=== PATIENT | male | born 1990 | race Caucasian/White ===

== ENCOUNTER → 2019-07-08 16:47 | Outpatient (REF) | payer BC, SELFPAY | LOC: ANHLAB 16:47 | PROVIDERS: PCP Nurse Practitioner; Visit Provider Nurse Practitioner | DX: L82.1 Other seborrheic keratosis (principal) | CPT/HCPCS: 88305 ==

== ENCOUNTER 2019-11-08 06:05 | Emergency (ER) | payer BC, SELFPAY ==
--- NOTE | ~2019-11-08 | CT_ITS ---
EXAMINATION: CT abdomen pelvis w con DATE: 11/08/2019 07:09 INDICATION: Vomiting with abdominal pain TECHNIQUE: Computed tomography (CT) of the abdomen and pelvis was performed with 100 mL Omnipaque-350 intravenous contrast. Automated exposure control and iterative reconstruction technique were employe d. The dose-length product was 795.19 mGy-cm. COMPARISON: 01/30/2005 FINDINGS: Lung bases are clear. Heart size is normal. No pericardial or pleural effusion. Small gallstone in th e dependent aspect of the normal-appearing gallbladder. Liver is normal. No intra or extrahepatic lindsay iary ductal dilation. Spleen, pancreas, bilateral adrenal glands and kidneys are normal. Couple dense appendicoliths within the normal-appearing appendix with no periappendiceal inflammatory stranding t o suggest acute appendicitis. Bowels are normal with no abnormal wall thickening or obstruction. Blad cindy is normal. No free intraperitoneal gas or fluid. No pathologically enlarged abdominal or pelvic l ymphadenopathy. Moderate disc height loss at L5-S1 and mild disc height loss at L4-L5. Several surgic al clips in the left thigh along the musculature at the proximal left vastus lateralis muscle. IMPRESSION: 1. Cholelithiasis without findings of biliary obstruction or acute cholecystitis. No acute intra-abdo modesta/pelvic process. Reviewed, dictated and finalized at location A. IMPRESSION: 1. Cholelithiasis without findings of biliary obstruction or acute cholecystiti s. No acute intra-abdominal/pelvic process.
[2019-11-08 06:06] VITALS: BP 127/71; PULSE 60; RESP 19; TEMP 36.1; O2SAT 100
[2019-11-08] MEDS: MORPHINE SULFATE 2 MG/ML INJ IV PUSH ×2 (06:26→07:25)
[2019-11-08 06:27] LABS: Basophils Percent Auto 0.2 % (0.2-1.2); Hematocrit 44.9 % (42.0-52.0); Hemoglobin 15.2 g/dL (14.0-18.0); Immature Granulocyte Absolute 0.13 K/mm3 (0.00-0.031); Immature Granulocyte Percent A 0.6 % (0-0.5); Lymphocytes Absolute Auto 1.03 K/mm3 (0.9-3.2); Lymphocytes Percent Auto 4.8 % (18.3-44.2); Mean Corpuscular HGB Conc 33.9 g/dl (32-36); Mean Corpuscular Volume 88.7 fl (80-100); Mean Platelet Volume 10.4 fl (7.4-10.4); Monocytes Absolute Auto 0.6 K/mm3 (0.1-0.6); Monocytes Percent Auto 2.7 % (2.6-8.5); Neutrophils Absolute Auto 19.6 K/mm3 (1.3-6.7); Neutrophils Percent Auto 91.7 % (45.5-73.1); Platelet Count Result 279 k/mm3 (150-375); Red Blood Count 5.06 M/mm3 (4.6-6.20); Red Cell Distribution Width 12.8 % (11.5-14.5); White Blood Count 21.4 K/mm3 (4.5-10.0)
[2019-11-08] MEDS: ONDANSETRON INJ 4 MG/2 ML VIAL IV PUSH (06:27)
[2019-11-08] MEDS: SODIUM CHLORIDE 0.9% IV 1,000 ML 999 ML IV CONT ×2 (06:27→07:26)
--- NOTE | 2019-11-08 06:28 | ED.NAVMDI ---
HPI - Nausea/Vomiting/Diarrhea General Chief complaint: Nausea/Vomiting/Diarrhea <Norm Grigsby MD - Last Filed: 11/08/19 06:32> Stated complaint: N/V <Norm Grigsby MD - Last Filed: 11/08/19 06:32> Time Seen by Provider: 11/08/19 06:21 <Norm Grigsby MD - Last Filed: 11/08/19 06:32> History of Present Illness HPI Narrative: Patient is a 28-year-old male who presents the ER with nausea and vomiting beginning yesterday at 4 PM. He is been unable to stop vomiting since then. It all started after eating a [employer] chicken teriyaki sub-sandwich. He reports since he has been vomiting he started having some blood streaks in it but no large quantities of blood. No diarrhea. He has some abdominal cramping from retching as well. No alleviating factors. <Norm Grigsby MD - Last Filed: 11/08/19 06:32> Related Data Allergies/Adverse reactions: Allergies Allergy/AdvReac Type Severity Reaction Status Date / Time No Known Allergies Allergy Verified 07/08/19 16:07 <Norm Grigsby MD - Last Filed: 11/08/19 06:32> Review of Systems Review of Systems: All systems reviewed & are unremarkable except as noted in HPI and below <Norm Grigsby MD - Last Filed: 11/08/19 06:32> Constitutional: Constitutional: Denies chills, Reports fatigue and Denies fever(s) <Norm Grigsby MD - Last Filed: 11/08/19 06:32> Gastrointestinal: Gastrointestinal: Reports abdominal pain, Denies hematochezia, Reports nausea and Reports vomiting (Blood-streaked emesis) <Norm Grigsby MD - Last Filed: 11/08/19 06:32> PMFSH Past Medical History Medical History: Medical History (Updated 11/08/19 @ 07:32 by Jeanne Chin MD) Depression Head injury due to trauma History of closed head injury History of melanoma <Norm Grigsby MD - Last Filed: 11/08/19 06:32> Surgical History Surgical History: Surgical History (Updated 11/08/19 @ 06:31 by Norm Grigsby MD) History of orthopedic surgery Compound fracture of the right tib-fib with surgical fixation and skin grafting. <Norm Grigsby MD - Last Filed: 11/08/19 06:32> Social History Social History: Social History Smoking status: Never smoker Alcohol intake: never Gender identity (if verbalized by the patient): Male <Norm Grigsby MD - Last Filed: 11/08/19 06:32> Exam Narrative: Exam Narrative: GENERAL: Uncomfortable-appearing, well-nourished, and in no acute distress. HEAD: Normocephalic, atraumatic. ENT: Mucous membranes moist. CHEST: Clear to auscultation. No respiratory distress. HEART: Regular rate and rhythm. Normal peripheral pulses. ABDOMEN: Soft, nontender, nondistended. EXTREMITIES: Normal range of motion. No edema. SKIN: Warm, dry, no rash. NEURO: Alert and oriented x3. <Norm Grigsby MD - Last Filed: 11/08/19 06:32> Course Vital Signs Vital signs: Vital Signs Temperature 36.1 C L 11/08/19 06:06 Pulse Rate 60 11/08/19 06:06 Respiratory Rate 19 11/08/19 06:06 Blood Pressure 127/71 11/08/19 06:06 Pulse Oximetry 100 11/08/19 06:06 Temperature 36.1 C L 11/08/19 06:06 Pulse Rate 55 L 11/08/19 08:24 Respiratory Rate 14 11/08/19 08:24 Blood Pressure 124/63 11/08/19 08:24 Pulse Oximetry 97 11/08/19 08:24 <Norm Grigsby MD - Last Filed: 11/08/19 06:32> Vital Signs Temperature 36.1 C L 11/08/19 06:06 Pulse Rate 60 11/08/19 06:06 Respiratory Rate 19 11/08/19 06:06 Blood Pressure 127/71 11/08/19 06:06 Pulse Oximetry 100 11/08/19 06:06 Temperature 36.1 C L 11/08/19 06:06 Pulse Rate 55 L 11/08/19 08:24 Respiratory Rate 14 11/08/19 08:24 Blood Pressure 124/63 11/08/19 08:24 Pulse Oximetry 97 11/08/19 08:24 <Jeanne Chin MD - Last Filed: 11/08/19 08:56> MDM - Nausea/Vomiting/Diarrhea Differential Diagnosis Differential di
[2019-11-08 06:48] LABS: Albumin Level 5.1 g/dL (3.5-5.1); Alkaline Phosphatase 88 U/L (38-126); Aspartate Amino Transferase 66 U/L (17-59); Bilirubin,Total 0.7 mg/dL (0.2-1.3); Blood Urea Nitrogen 12 mg/dL (9-20); Calcium 9.6 mg/dL (8.4-10.2); Carbon Dioxide 26 mmol/L (22-30); Chloride 101 mmol/L (98-107); Estimated CRCL calculation 168 ml/min; Estimated Glomerular Filt Rate > 60; Glucose 139 mg/dL (75-110); Lipase 23 U/L (23-300); Potassium 3.8 mmol/L (3.4-5.0); Sodium 140 mmol/L (137-145)
[2019-11-08 06:50] LABS: Alanine Aminotransferase 73 U/L (4-50)
[2019-11-08 07:05] LABS: Add Urine Microscopic? YES; Appearance Urine Clear (Clear); Bilirubin Urine Negative (Negative); Blood Urine Negative (Negative); Color Urine Yellow (Yellow); Glucose Urine UA 1+ mg/dL (Negative); Ketones Urine Trace mg/dL (Negative); Leukocyte Esterase Ur Negative LEU/UL (Negative); Mucus Urine Moderate /lpf; Nitrate Urine Negative (Negative); Protein Urine 3+ mg/dL (Negative); RBC Urine 0-2 /hpf (0-2); Squamous Epithelial Cell Urine Rare /hpf (Few); Urobilinogen Urine Negative mg/dL (<2.0); WBC Urine 0-3 /hpf
[2019-11-08 07:09] LABS: Specific Grav Ur 1.032 (1.001-1.035)
[2019-11-08] MEDS: METOCLOPRAMIDE HCL INJ 10 MG/2 ML VIAL IV PUSH (07:25)
[2019-11-08 07:27] VITALS: BP 102/50; PULSE 51; RESP 14; O2SAT 97
[2019-11-08 08:24] VITALS: BP 124/63; PULSE 55; RESP 14; O2SAT 97
== END 2019-11-08 08:39 | disposition home or self-care (01) ==
PROVIDERS: Emergency Medicine; Emergency Provider Emergency Medicine; PCP Internal Medicine
DX: A05.9 Bacterial foodborne intoxication, unspecified (principal); E86.0 Dehydration; K80.20 Calculus of gallbladder without cholecystitis without obstruction; Z85.820 Personal history of malignant melanoma of skin
CPT/HCPCS: 36415; 74177; 80053; 81001; 83690; 85025; 96361; 96374; 96375; 96376; 99284; J2270; J2405; J2765; J7030; Q9967

== ENCOUNTER 2020-04-16 16:36 | Emergency (ER) | payer BC, SELFPAY ==
[2020-04-16 16:44] VITALS: BP 136/78; PULSE 67; RESP 12; TEMP 36.6; O2SAT 97
--- NOTE | 2020-04-16 16:55 | ED.URI ---
HPI - URI/Sore Throat General Chief Complaint: Upper Respiratory Infection Stated Complaint: sore throat/ear pain/cough/body aches Source: patient Mode of arrival: ambulatory Limitations: no limitations History of Present Illness HPI Narrative: Patient is a 29-year-old male who presents complaining of cough, sore throat, body aches, ear pain and fatigue x2 days. Patient reports possible exposure to Covid at work. He denies chest pain or shortness of breath, denies taking [id number] medications at this time. Patient does appear reddened and patient appears ill. MD elicited complaint: sore throat Related Data Home Medications Medication Instructions Recorded Confirmed lamotrigine 100 mg PO DAILY 04/16/20 04/16/20 Allergies Allergy/AdvReac Type Severity Reaction Status Date / Time No Known Allergies Allergy Verified 04/16/20 16:53 Review of Systems Review of Systems: Narrative: CONSTITUTIONAL: Denies fever, chills, or sweats. EYES: Denies visual changes, redness, or discharge. ENT: Reports sore throat, and bilateral otalgia. CARDIOVASCULAR: Denies chest pain, palpitations, or edema. RESPIRATORY: Reports cough, denies dyspnea. GASTROINTESTINAL: Denies abdominal pain, nausea, vomiting, or diarrhea. GENITOURINARY: Denies dysuria or hematuria. SKIN: Denies rash or itching. MUSCULOSKELETAL: Denies back pain, joint pain, or myalgia. NEUROLOGIC: Denies headache, numbness, dizziness, or weakness. PSYCHIATRIC: Denies anxiety or depression. [facility] Past Medical History Medical History Depression Head injury due to trauma History of closed head injury History of melanoma Surgical History Surgical History History of orthopedic surgery Compound fracture of the right tib-fib with surgical fixation and skin grafting. Family History Family History Father Family history of elevated blood lipids Family history of cardiomyopathy Hypertension Family history of cardiovascular disease Asthma Mother Family history of elevated blood lipids Family history of diabetes mellitus in first degree relative Family history of thyroid disease Diabetes mellitus Social History Social History Smoking status: Never smoker Alcohol intake: never Gender identity (if verbalized by the patient): Male Exam Narrative: Exam Narrative: GENERAL: Ill appearing but in no acute distress. HEAD: Normocephalic, atraumatic. EYES: Bilateral redness noted Conjunctiva are normal. ENT: Mucous membranes pink and moist. Nares clear. No rhinorrhea. TMs normal bilaterally. Throat normal with mild erythema. Uvula midline. NECK: AROM. Supple. No lymphadenopathy. CHEST: No respiratory distress. EXTREMITIES: Normal range of motion. SKIN: Warm, dry, no rash. NEURO: No focal deficits. Alert and oriented x3. Gait steady. PSYCH: Normal affect. No signs of depression or anxiety. MDM - URI/Sore Throat MDM Narrative Medical decision making narrative: Patient's rapid strep and influenza are negative at this time. Discussed risk factors and Covid testing with patient.. Patient agrees for Covid testing. Covid testing ordered at this time, patient aware of quarantine. Patient aware of symptomatic treatment. Discussed with patient that if he has increased chest pain or shortness of breath, that he is to go to the emergency department immediately for further evaluation. Patient is stable for discharge home with outpatient follow-up as needed. Differential Diagnosis Differential diagnosis: Likely upper respiratory infection, viral infection, influenza and pharyngitis Critical Care Time Critical Care Time Critical Care Time: No Discharge Plan Discharge Clinical Impression: Upper respiratory infection Patient Disposit
[2020-04-16 16:56] VITALS: BP 136/78; PULSE 67; RESP 12; TEMP 36.6; O2SAT 97
== END 2020-04-16 17:20 | disposition home or self-care (01) ==
PROVIDERS: Emergency Provider Nurse Practitioner; PCP Nurse Practitioner
DX: J06.9 Acute upper respiratory infection, unspecified (principal); Z20.828 Contact with and (suspected) exposure to other viral communicable diseases; F32.9 Major depressive disorder, single episode, unspecified; Z85.820 Personal history of malignant melanoma of skin
CPT/HCPCS: 87081; 87804; 87880; 99213; G0463

== ENCOUNTER 2021-04-28 08:12 | Outpatient (RCR) | payer BC, SELFPAY ==
[2021-04-28 10:36] VITALS: BP 138/66; PULSE 76; RESP 18; TEMP 36.8; O2SAT 97
[2021-04-28] MEDS: FAMOTIDINE 20 MG TABLET PO (10:40)
[2021-04-28] MEDS: ACETAMINOPHEN 325 MG TABLET 650 MG PO (10:40)
[2021-04-28] MEDS: diphenhydrAMINE HCl CAP 25 MG CAPSULE PO (10:40)
[2021-04-28 12:12] VITALS: BP 118/60
--- NOTE | 2021-04-29 08:48 | PC.NURSE ---
Called Mr Moulton and he stated he feels some better but is more stuffy and his ears feel clogged today, and ran a low grade fever over the night. I recommended he call his PCP if he is not better by tomorrow for the ear discomfort and he voiced understanding. He has no other questions at this time.
== END 2021-04-28 17:00 ==
LOC: AMCINF 08:12
PROVIDERS: PCP Internal Medicine; Visit Provider Internal Medicine Hematology & Oncology
DX: U07.1 COVID-19 (principal)
CPT/HCPCS: A9270; M0245; Q0245

== ENCOUNTER 2021-05-26 22:21 | Emergency (ER) | payer BC, SELFPAY ==
[2021-05-26] MEDS: TETANUS,DIPHTHERIA,AC PERTUSSIS ADULT (0.5 ML) BOOSTRIX IM (23:00)
[2021-05-26 23:03] VITALS: BP 147/83; PULSE 87; RESP 18; TEMP 36.6; O2SAT 99
[2021-05-26 23:46] VITALS: RESP 14
--- NOTE | 2021-05-27 01:04 | ED.GENADULT ---
HPI - General Adult General Chief complaint: Wound/Laceration Stated complaint: laceration to finger Time Seen by Provider: 05/27/21 00:09 History of Present Illness HPI narrative: Patient 30-year-old gentleman presents the emergency department with chief complaint of laceration to right ring finger. The patient reports this began about 2 PM today when he touched the blade portion of a log splitter. Patient reports that he tried to use a Band-Aid on it but it continued to bleed and reports that he gapes open somewhat the patient denies any numbness or tingling denies focal neurological deficit. Related Data Allergies Allergy/AdvReac Type Severity Reaction Status Date / Time No Known Allergies Allergy Verified 05/26/21 23:51 Review of Systems Review of Systems: A 10 system review of systems was completed on the patient and is negative except for what is stated in the HPI. Nursing and ancillary documentation was reviewed. [facility] Past Medical History Medical History Depression Head injury due to trauma History of closed head injury History of melanoma Surgical History Surgical History History of orthopedic surgery Compound fracture of the right tib-fib with surgical fixation and skin grafting. Family History Family History Father Family history of elevated blood lipids Family history of cardiomyopathy Hypertension Family history of cardiovascular disease Asthma Mother Family history of elevated blood lipids Family history of diabetes mellitus in first degree relative Family history of thyroid disease Diabetes mellitus Social History Social History Smoking status: Never smoker Alcohol intake: never Gender identity (if verbalized by the patient): Male Spiritual care concerns: No Exam Narrative: GENERAL: Well-appearing, well-nourished, and in no acute distress. HEAD: Normocephalic, atraumatic. EYES: PERRLA and EOMI. ENT: Nares clear, no rhinorrhea or epistaxis. Mucous membranes moist. NECK: Supple. CHEST: Clear to auscultation. No respiratory distress. HEART: Regular rate and rhythm. No murmur heard. Normal peripheral pulses. ABDOMEN: Soft, nontender, nondistended, normal active bowel sounds. EXTREMITIES: Normal range of motion. No edema. There is a 1-1/2 cm laceration to the ulnar aspect of the right ring finger. The patient has full range of motion SKIN: Warm, dry, no rash. NEURO: No focal deficits. Alert and oriented x3. PSYCH: Normal mood and affect. Course Vital Signs Vital signs: Vital Signs Temperature 36.6 C 05/26/21 23:03 Pulse Rate 87 05/26/21 23:03 Respiratory Rate 18 05/26/21 23:03 Blood Pressure 147/83 H 05/26/21 23:03 Pulse Oximetry 99 05/26/21 23:03 Temperature 36.6 C 05/26/21 23:03 Pulse Rate 87 05/26/21 23:03 Respiratory Rate 14 05/26/21 23:46 Blood Pressure 147/83 H 05/26/21 23:03 Pulse Oximetry 99 05/26/21 23:03 Procedures Laceration Laceration 1: Date: 05/27/21 Time: 01:04 Site: hand (Right ring finger) Side (If applicable): right Size (cm): 1.5 Description: linear Depth: simple, single layer Local Anesthetic: lidocaine 1% Amount of anesthesia used (mL): 2 Pre-repair: wound explored, irrigated and irrigated extensively ====== Skin Level ====== Skin layer closed with: nylon Size (cm): 4-0 Number of sutures: 3 Technique: simple, interrupted ====== Subcutaneous Layer ====== ====== Muscle Layer ====== ====== Tendon Layer ====== Dressing: Laceration was performed by the fourth-year medical student working with me this evening. I was in direct supervision of the grzegorz
[2021-05-27 01:48] VITALS: BP 128/76; PULSE 70; RESP 14; O2SAT 97
== END 2021-05-27 01:50 | disposition home or self-care (01) ==
PROVIDERS: Emergency Provider Emergency Medicine; PCP Internal Medicine
DX: S61.310A Laceration without foreign body of right index finger with damage to nail, initial encounter (principal); Z23 Encounter for immunization; W29.3XXA Contact with powered garden and outdoor hand tools and machinery, initial encounter
CPT/HCPCS: 12001; 90471; 90715; 99282